=== PATIENT | female | born 1990 | race African-American/Black ===

== ENCOUNTER 2019-04-02 18:27 | Emergency (ER) | payer MEDICAID ==
[~2019-04-02] VITALS: Ht 160 cm; Wt 78.0 kg
[2019-04-02] MEDS ORDERED: IBUPROFEN 600MG TABLET PO ONE (20:30)
[2019-04-02] MEDS ORDERED: TETRACAINE 0.5% OPHTH DROPS 4ML RIGHTEYE ONE (20:30)
[2019-04-02] MEDS ORDERED: FLUORESCEIN SODIUM 1MG/STRIP RIGHTEYE ONE (20:30)
[2019-04-02 21:54] VITALS: BP 124/70
== END 2019-04-02 21:54 | disposition home or self-care (01) ==
LOC: ER 18:27
DX: J01.00 Acute maxillary sinusitis, unspecified (principal); H57.11 Ocular pain, right eye; R51 Headache
CPT/HCPCS: 81025; 99284